=== PATIENT | female | born 2000 | race African-American/Black ===

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

== ENCOUNTER 2018-03-20 16:30 | Emergency (ER) | payer SELFPAY ==
[~2018-03-20] VITALS: Ht 162.6 cm; Wt 61.2 kg
[~2018-03-20 16:30] MED LIST: FERR-65 PO; METR500T PO
--- OUTSIDE RECORDS SUMMARY | 2018-03-20 16:37 | XMS REPORT ---
Author Author DON OLIVARES [facility] Address [address] [place] [address] Phone Unavailable Care Team Providers Care Motor Runner Name Role Phone DON OLIVARES Unavailable Unavailable PROBLEMS Unknown Problems ALLERGIES No Known Allergies ENCOUNTERS Encounter Location Date Diagnosis [facility] [address] [facility] [id number] [address] Nov, Jeet L30.4 IMMUNIZATIONS No Known Immunizations SOCIAL HISTORY Never Assessed REASON FOR VISIT irriated inner thighs-painful irritation on bilateral inner thighs that started this morning.--OSEAS Gutierrez PLAN OF CARE Activity Details Follow Up prn Reason: VITAL SIGNS Height 64 in 2017-12-19 Weight 146.4 lbs 2017-12-19 Temperature 98.0 degrees Fahrenheit 2017-12-19 Heart Rate 84 bpm 2017-12-19 Respiratory Rate 18 2017-12-19 BMI 25.13 kg/m2 2017-12-19 Blood pressure systolic 100 mmHg 2017-12-19 Blood pressure diastolic 56 mmHg 2017-12-19 MEDICATIONS No Known Medications RESULTS No Results PROCEDURES No Known procedures INSTRUCTIONS MEDICATIONS ADMINISTERED No Known Medications MEDICAL (GENERAL) HISTORY Type Description Date Hospitalization History childbirth 04/2017
[2018-03-20] MEDS ORDERED: NS IV 1000 ML 1,000 ML IV SCH ×2 (16:50→18:19)
[2018-03-20 16:58] LABS: CLARITY,URINE SLIGHTLY CLOUDY; COLOR,URINE YELLOW; GLUCOSE, URINE (UA) NEGATIVE (NEGATIVE); KETONES,URINE 3+ (NEGATIVE); LEUKOCYTE ESTERASE ,URINE 3+ (NEGATIVE); NITRITE,URINE NEGATIVE (NEGATIVE); PH,URINE 5 (5-9); PROTEIN,URINE 3+ (NEGATIVE); UROBILINOGEN,URINE 1 MG/DL (NORMAL)
[2018-03-20] MEDS ORDERED: ACETAMINOPHEN 500 MG TAB (TYLENOL) PO PRN (17:00)
[2018-03-20 17:04] LABS: BASOPHILS % (AUTO) 0 % (0-10); EOSINOPHILS % (AUTO) 0 % (0-10); HEMATOCRIT 36 % (35-52); HEMOGLOBIN 11.9 G/DL (11.5-16.0); LYMPHOCYTES # (AUTO) 0.7 X 10^3 (1.0-4.0); LYMPHOCYTES % (AUTO) 5 % (12-44); MEAN CORPUSCULAR HEMOGLOBIN 24 PG (25-34); MEAN CORPUSCULAR HGB CONC 33 G/DL (32-36); MEAN CORPUSCULAR VOLUME 71 FL (80-99); MEAN PLATELET VOLUME 11.9 FL (7.4-10.4); MONOCYTES % (AUTO) 8 % (0-12); NEUTROPHILS # (AUTO) 10.9 X 10^3 (1.8-7.8); NEUTROPHILS % (AUTO) 86 % (42-75); PLATELET COUNT 285 10^3/uL (130-400); RED BLOOD COUNT 5.07 10^6/uL (4.35-5.85); RED CELL DISTRIBUTION WIDTH 14.9 % (10.0-14.5); WHITE BLOOD COUNT 12.7 10^3/uL (4.3-11.0)
[2018-03-20 17:06] LABS: BACTERIA,URINE LARGE /HPF; RBC,URINE 50-100 /HPF; RENAL EPITHELIAL CELLS,URINE 0-2 /HPF; WBC,URINE TNTC /HPF
[2018-03-20 17:07] LABS: AMORPHOUS SEDIMENT,UR RARE AMOR URATES /LPF
[2018-03-20 17:14] LABS: ALANINE AMINOTRANSFERASE 11 U/L (0-55); ALBUMIN 4.4 GM/DL (3.2-4.5); ALKALINE PHOSPHATASE 75 U/L (40-136); BILIRUBIN,TOTAL 1.1 MG/DL (0.1-1.0); BUN/CREATININE RATIO 13; CALCIUM 9.4 MG/DL (8.5-10.1); CARBON DIOXIDE 21 MMOL/L (21-32); CHLORIDE 103 MMOL/L (98-107); CREATININE SERUM 0.85 MG/DL (0.60-1.30); GFR ESTIMATED > 60; GLUCOSE 129 MG/DL (70-105); POTASSIUM 3.4 MMOL/L (3.6-5.0); SODIUM 137 MMOL/L (135-145); TOTAL PROTEIN 7.8 GM/DL (6.4-8.2)
[2018-03-20 17:20] LABS: INR 1.3 (0.8-1.4); PROTHROMBIN TIME PATIENT 16.3 SEC (12.2-14.7)
[2018-03-20 17:33] LABS: BAND NEUTROPHILS 29 %; LYMPHOCYTES % (MANUAL) 6 %; NEUTROPHILS % (MANUAL) 59 %
[2018-03-20 17:34] LABS: ELLIPT/OVALOCYTES MODERATE; MICROCYTOSIS MODERATE; MONOCYTES % (MANUAL) 6 %; POIKILOCYTOSIS SLIGHT
--- NOTE | 2018-03-20 17:58 | ED GU-Female ---
General Chief Complaint: Fever-Adult/Adol Stated Complaint: FEVER,VAGINAL IRRITATION Nursing Triage Note: PT ARRIVED PER EMS, PT HAS TEMP 102.7. PT STATES HAS NOT BEEN FEELING WELL FOR A COUPLE DAYS, PT STATES HAS SOME VAGINAL DISCHARGE SINCE LAST HAD SEX FROM USING BABY LOTION LUBRICANT History of Present Illness Date Seen by Provider: Mar 20, 2018 Time Seen by Provider: 16:30 Initial Comments 17-year-old -[place] female presents via EMS for vaginal irritation. She reports that 3 days ago she had intercourse after drinking alcohol, she does not recall why that they used baby lotion. She is not on control and is not using condoms. She reports the same partner for the last several months. Since then she has been noting vaginal irritation and pain. She does not recall history of STI's. She reports yellow to green vaginal discharge. Her last menstrual cycle began on March 09. She moved here from [place] in the summer and has yet to set up with a primary care provider. She denies fever, however she does report bodyaches. Timing/Duration: getting worse Severity/Quality: moderate Location: vaginal Radiation: none Activities at Onset: sexual activity Sexual [place] History: less than 2 months ago, single partner Associated Symptoms: abdominal pain, fever/chills; No nausea/vomiting, No urinary frequency Allergies and Home Medications Allergies Coded Allergies: No Known Drug Allergies (Unverified , 12/10/17) Home Medications Ciprofloxacin HCl 500 Mg Tablet, 500 MG PO BID Prescribed by: LUIS MIGUEL MARQUEZ on 03/20/181823 Metronidazole 70 Gm Gel.w.appl, 70 GM VG HS Prescribed by: LUIS MIGUEL MARQUEZ on 03/20/181817 Norethindrone AC-Eth Estradiol 1 Each Tablet, 1 EACH PO DAILY Prescribed by: LUIS MIGUEL MARQUEZ on 03/20/181817 Patient Home Medication List Home Medication List Reviewed: Yes Review of Systems Review of Systems Constitutional: no symptoms reported, see HPI, fever Genitourinary: see HPI, burning, discharge : No LMP: Mar 09, 2018 Musculoskeletal: see HPI, muscle cramps All Other Systemes Reviewed Negative Unless Noted: Yes Past Ejbexnl-Sphgmm-Lfjukv Hx Past Med/Social Hx: Reviewed Nursing Past Med/Soc Hx Patient Social History Alcohol Use: Denies Use Recreational Drug Use: No Smoking Status: Never a Smoker 2nd Hand Smoke Exposure: No Recent Foreign Travel: No Contact w/Someone Who Travel: No Recent Infectious Disease Expo: No Recent Hopitalizations: No Ebola Symptoms: Denies Symptoms Listed Physical Abuse: No Sexual Abuse: No Seasonal Allergies Seasonal Allergies: No Past Medical History Surgeries: No Respiratory: No Cardiac: No Neurological: No Sexually Transmitted Disease: No HIV/AIDS: No Genitourinary: No Gastrointestinal: No Musculoskeletal: No Endocrine: No Cancer: No Psychosocial: No Integumentary: No Blood Disorders: No Family Medical History No Pertinent Family Hx Physical Exam Vital Signs Vital Signs - First Documented 03/20/18 03/20/18 16:30 19:21 Temp 102.7 Pulse 127 Resp 18 B/P (MAP) 114/70 Pulse Ox 98 O2 Delivery Room Air Capillary Refill : Height, Weight, BMI Height: 5'4.00" Weight: 135lbs. oz. 61.362035gs; 21.09 BMI Method:Stated General Appearance: WD/WN HEENT: PERRL/EOMI, normal ENT inspection, TMs normal, pharynx normal Neck: non-tender, full range of motion, supple, normal inspection Cardiovascular: normal peripheral pulses, regular rate, rhythm, no murmur Respiratory: chest non-tender, lungs clear, normal breath sounds Gastrointestinal: normal bowel sounds, non tender, soft; No distended, No guarding, No rebound, No tenderness Pelvic: normal external exam, normal adnexa, no cerv. motion tender, no masses , discharge (and green to yellow); No vaginal bleeding Back: normal inspection, no CVA tenderness, no vertebral tenderness; No CVA tenderness (R), No CVA tenderness (L), No vertebral tenderness Neurologic/Psychiatric: no motor/sensory deficits, alert, normal mood/affect, oriented x 3 Focused Exam Lactate Level 03/20/18 16:40: Lactic Acid Level 1.04 Lactic Acid Level Progress/Results/Core Measures Suspected Sepsis SIRS Temperature:102.7 Pulse: Respiratory Rate: Laboratory Tests 03/20/18 16:40: White Blood Count 12.7H Blood Pressure / Mean: 03/20/18 16:40: Lactic Acid Level 1.04 Laboratory Tests 03/20/18 16:40: Creatinine 0.85, INR Comment 1.3, Platelet Count 285, Total Bilirubin 1.1H Results/Orders Lab Results Laboratory Tests Test 03/20/18 16:40 03/20/18 16:50 03/20/18 18:00 Range/Units White Blood Count 12.7 H 4.3-11.0 10^3/uL Red Blood Count 5.07 4.35-5.85 10^6/uL Hemoglobin 11.9 11.5-16.0 G/DL Hematocrit 36 35-52 % Mean Corpuscular Volume 71 L 80-99 FL Mean Corpuscular Hemoglobin 24 L 25-34 PG Mean Corpuscular Hemoglobin Concent 33 32-36 G/DL Red Cell Distribution Width 14.9 H 10.0-14.5 % Platelet Count 285 130-400 10^3/uL Mean Platelet Volume 11.9 H 7.4-10.4 FL Neutrophils (%) (Auto) 86 H 42-75 % Lymphocytes (%) (Auto) 5 L 12-44 % Monocytes (%) (Auto) 8 0-12 % Eosinophils (%) (Auto) 0 0-10 % Basophils (%) (Auto) 0 0-10 % Neutrophils # (Auto) 10.9 H 1.8-7.8 X 10^3 Lymphocytes # (Auto) 0.7 L 1.0-4.0 X 10^3 Monocytes # (Auto) 1.0 0.0-1.0 X 10^3 Eosinophils # (Auto) 0.0 0.0-0.3 10^3/uL Basophils # (Auto) 0.0 0.0-0.1 10^3/uL Neutrophils % (Manual) 59 % Lymphocytes % (Manual) 6 % Monocytes % (Manual) 6 % Band Neutrophils 29 % Poikilocytosis SLIGHT Microcytosis MODERATE Elliptocytes MODERATE Prothrombin Time 16.3 H 12.2-14.7 SEC INR Comment 1.3 0.8-1.4 Activated Partial Thromboplast Time 39 H 24-35 SEC Sodium Level 137 135-145 MMOL/L Potassium Level 3.4 L 3.6-5.0 MMOL/L Chloride Level 103 98-107 MMOL/L Carbon Dioxide Level 21 21-32 MMOL/L Anion Gap 13 5-14 MMOL/L Blood Urea Nitrogen 11 7-18 MG/DL Creatinine 0.85 0.60-1.30 MG/DL Estimat Glomerular Filtration Rate > 60 BUN/Creatinine Ratio 13 Glucose Level 129 H 70-105 MG/DL Lactic Acid Level 1.04 0.50-2.00 MMOL/L Calcium Level 9.4 8.5-10.1 MG/DL Corrected Calcium 9.1 8.5-10.1 MG/DL Total Bilirubin 1.1 H 0.1-1.0 MG/DL Aspartate Amino Transf (AST/SGOT) 15 5-34 U/L Alanine Aminotransferase (ALT/SGPT) 11 0-55 U/L Alkaline Phosphatase 75 40-136 U/L Total Protein 7.8 6.4-8.2 GM/DL Albumin 4.4 3.2-4.5 GM/DL Urine Color YELLOW Urine Clarity SLIGHTLY CLOUDY Urine pH 5 5-9 Urine Specific [place] 1.025 H 1.016-1.022 Urine Protein 3+ H NEGATIVE Urine Glucose (UA) NEGATIVE NEGATIVE Urine Ketones 3+ H NEGATIVE Urine Nitrite NEGATIVE NEGATIVE Urine Bilirubin 1+ H NEGATIVE Urine Urobilinogen 1 NORMAL MG/DL Urine Leukocyte Esterase 3+ H NEGATIVE Urine RBC (Auto) 5+ H NEGATIVE Urine RBC 50-100 H /HPF Urine WBC TNTC H /HPF Urine Squamous Epithelial Cells 5-10 /HPF Urine Renal Epithelial Cells 0-2 /HPF Urine Crystals PRESENT H /LPF Urine Amorphous Sediment RARE ABELARDO URATES H /LPF Urine Bacteria LARGE H /HPF Urine Casts NONE /LPF Urine Mucus SMALL H /LPF Urine Culture Indicated NO Urine Test NEGATIVE NEGATIVE Micro Results Microbiology 03/20/18 Influenza Types A,B Antigen (TABITHA) - Final, Complete My Orders Orders - LUIS MIGUEL MARQUEZ Cbc With Automated Diff (03/20/18 16:50) Comprehensive Metabolic Panel (03/20/18 16:50) Blood Culture (03/20/18 16:50) Urinalysis (03/20/18 16:50) Urine Culture (03/20/18 16:50) Protime With Inr (03/20/18 16:50) Partial Thromboplastin Time (03/20/18 16:50) Acetaminophen Tablet (Tylenol Tablet) (03/20/18 17:00) Saline Lock/Iv-Start (03/20/18 16:50) O2 (03/20/18 16:50) Influenza A And B Antigens (03/20/18 16:50) Ns Iv 1000 Ml (Sodium Chloride 0.9%) (03/20/18 16:50) Lactic Acid Analyzer (03/20/18 16:50) Manual Differential (03/20/18 16:40) Hcg,Qualitative Urine (03/20/18 17:25) Wet Prep (03/20/18 17:58) Neisseria Gonorrhea Swab (03/20/18 17:58) Genital Culture (03/20/18 17:58) Chlamydia Trachomatis Swab (03/20/18 17:58) Saline Lock/Iv-Start (03/20/18 18:19) Ns Iv 1000 Ml (Sodium Chloride 0.9%) (03/20/18 18:19) Ciprofloxacin Tablet (Cipro Tablet) (03/20/18 18:25) Medications Given in ED Current Medications Medications Dose Ordered Sig/Portia Route Start Time Stop Time Status Last Admin Dose Admin Acetaminophen 1,000 mg ONCE PRN PO 03/20/18 17:00 03/20/18 17:00 DC 03/20/18 16:56 1,000 MG Vital Signs/I&O 03/20/18 03/20/18 16:30 19:21 Temp 102.7 98.9 Pulse 127 106 Resp 18 18 B/P (MAP) 114/70 101/56 (71) Pulse Ox 98 O2 Delivery Room Air Capillary Refill : Progress Note : Time: 16:30 Progress Note Patient seen and evaluated, will do full lab workup and check for influenza. Tylenol 1000 mg by mouth for fever and normal saline 1 L IV 1715 labs essentially normal, influenza A and B negative, urine positive for UTI. Recommended pelvic exam to check for PID. Patient was exquisitely tender with vaginal speculum insertion, cultures obtained and wet prep. 1800 discussed results of lab and wet prep with the patient. We'll administer a second liter of IV fluids, normal saline. Temperature 99.3. Cipro 500 mg orally for UTI. 1900 patient continues to have no abdominal pain, no CVA tenderness. Discharge instructions and return precautions reviewed with the patient. She understands the importance of taking her medications as prescribed. She also like to start oral contraceptives which will be prescribed. I stressed the importance of her establishing care with a primary care provider in this area. Departure Impression Primary Impression: Bacterial vaginosis Additional Impression: UTI (urinary tract infection) Qualified Codes: N30.01 - Acute cystitis with hematuria Disposition: HOME, SELF-CARE Condition: Improved Departure-Patient Inst. Decision time for Depature: 18:15 Referrals: NO,LOCAL PHYSICIAN (PCP/Family) Primary Care Physician Patient Instructions: Bacterial Vaginosis (DC), Urinary Tract Infection, Adult (DC) Add. Discharge Instructions: Take antibiotic as prescribed and use the Flagyl at bedtime, with applicator intra-vaginally. Complete Vaginal Rest: No intercourse or anything else in the vagina, until all labs are back and you have finished your medications. You may take Tylenol 650 mg alternating with ibuprofen 600 mg every 4 hours for pain or fever. Take showers only, no baths. Scheduled follow-up with a primary care provider or at Critical access hospital, see list of local health care providers Return to emergency department for acute, emergent health care problems. All discharge instructions reviewed with patient and/or family. Voiced understanding. Scripts Ciprofloxacin HCl (Cipro) 500 Mg Tablet 500 MG PO BID, #10 TAB 0 Refills Prov: LUIS MIGUEL MARQUEZ 03/20/18 Norethindrone AC-Eth Estradiol (Loestrin 21 1.5-30 Tablet) 1 Each Tablet 1 EACH PO DAILY, #1 PACKET 3 Refills Prov: LUIS MIGUEL MARQUEZ 03/20/18 Metronidazole (Metronidazole) 70 Gm Gel.w.appl 70 GM VG HS for 5 Days, #1 TUBE Prov: LUIS MIGUEL MARQUEZ 03/20/18 Work/School Note: Local Medical Staff Listing LUIS MIGUEL MARQUEZ Mar 20, 2018 17:58
[2018-03-20] MEDS ORDERED: METR70GE5 VG (18:18)
[2018-03-20] MEDS ORDERED: NORE-97 PO (18:18)
[2018-03-20] MEDS ORDERED: CIPR-225 PO (18:24)
[2018-03-20] MEDS ORDERED: CIPROFLOXACIN 500 MG (CIPRO) TABLET PO STA (18:25)
[2018-03-20 19:21] VITALS: BP 101/56
[2018-03-21 09:56] LABS: BILIRUBIN,URINE 1+ (NEGATIVE)
== END 2018-03-20 19:21 | disposition home or self-care (01) ==
LOC: EDUNIT# 16:32 → ER 16:33
DX: N76.0 Acute vaginitis (principal); B96.89 Other specified bacterial agents as the cause of diseases classified elsewhere; N39.0 Urinary tract infection, site not specified
CPT/HCPCS: 36415; 80053; 81000; 83605; 84703; 85007; 85027; 85610; 85730; 87040; 87070; 87077; 87088; 87205; 87210; 87491; 87591; 87804

== ENCOUNTER 2018-03-25 03:06 | Emergency (ER) | payer SELFPAY ==
[~2018-03-25] VITALS: Ht 162.6 cm; Wt 61.2 kg
[~2018-03-25 03:06] MED LIST changes: +CIPR-225 PO; +METR70GE5 VG; +NORE-97 PO
--- NOTE | 2018-03-25 04:05 | ED GU-Female ---
General Chief Complaint: -Female Stated Complaint: IRRITATION TO VAGINA Nursing Triage Note: PT AMB FROM TRIAGE TO ROOM #9 W/O DIFFICULTY. A&OX4. C/O VAGINAL IRRITATION THAT BEGAN APPROX 3DAYS AGO. PT REPORTS BUMPS HAVE DEVELOPED THAT ARE NOW IRRITATED AND INFLAMMED. PT STATES "I PUT BABY LOTION ON MY BOYFRIENDS PENIS FOR HIS PLEASURE, THEN I FORGOT IT WAS ON THERE, SO WE HAD SEX AND NOW IM COVERED IN ALL THESE NASTY BUMPS." Source: patient, old records History of Present Illness Date Seen by Provider: Mar 25, 2018 Time Seen by Provider: 03:35 Initial Comments PT ARRIVES VIA EMS FROM HOME C/O VAGINAL PAIN SEEN HERE 03/20/18 FOR SAME,ALSO ARRIVING BY EMS ON THAT VISIT ALSO--FOR COMPLAINT OF VAGINAL PAIN-- DX WITH UTI AND BACTERIAL VAGINOSIS. RX'S FOR CIPRO + FLAGYL. HAD EXTENSIVE WORK UP INCLUDING LAB AND PELVIC EXAM/CULTURES. GC AND CHLAMYDIA TESTS WERE NEGATIVE AT THAT TIME. URINE CULTURE GREW GROUP B STREP AND GARDNERELLA. PT STATES SHE STILL HAS PAIN AND BURNING IN HER VAGINAL AREA AND HAS "BUMPS" IN VAGINAL AREA. STATES "FIRST THEY LOOKED LIKE PUS BUMPS BUT NOW THEY'RE REALLY RED AND THEY BURN" C/O VAGINAL DISCHARGE NO ABDOMINAL / PELVIC PAIN NO NAUSEA/VOMITING NO FEVER NO HISTORY OF SIMILAR PT CLAIMS ALL SYMPTOMS STARTED AFTER HAVING INTERCOURSE USING BABY LOTION SEVERAL DAYS AGO. Allergies and Home Medications Allergies Coded Allergies: No Known Drug Allergies (Unverified , 12/10/17) Home Medications Ciprofloxacin HCl 500 Mg Tablet, 500 MG PO BID Prescribed by: LUIS MIGUEL MARQUEZ on 03/20/181823 Metronidazole 70 Gm Gel.w.appl, 70 GM VG HS Prescribed by: LUIS MIGUEL MARQUEZ on 03/20/181817 Norethindrone AC-Eth Estradiol 1 Each Tablet, 1 EACH PO DAILY Prescribed by: LUIS MIGUEL MARQUEZ on 03/20/181817 Patient Home Medication List Home Medication List Reviewed: Yes Review of Systems Review of Systems Constitutional: no symptoms reported Genitourinary: see HPI Past Ckzxbal-Tktbga-Lvkquh Hx Patient Social History Alcohol Use: Denies Use Recreational Drug Use: No Smoking Status: Never a Smoker 2nd Hand Smoke Exposure: No Recent Foreign Travel: No Contact w/Someone Who Travel: No Recent Infectious Disease Expo: No Recent Hopitalizations: No Ebola Symptoms: Denies Symptoms Listed Seasonal Allergies Seasonal Allergies: No Past Medical History Surgeries: No Respiratory: No Cardiac: No Neurological: No Sexually Transmitted Disease: No HIV/AIDS: No Genitourinary: No Gastrointestinal: No Musculoskeletal: No Endocrine: No Cancer: No Psychosocial: No Integumentary: No Blood Disorders: No Family Medical History No Pertinent Family Hx Physical Exam Vital Signs Vital Signs - First Documented 03/25/18 03:32 Temp 96.9 Pulse 106 Resp 18 B/P (MAP) 114/81 Pulse Ox 96 O2 Delivery Room Air Capillary Refill : Height, Weight, BMI Height: 5'4.00" Weight: 135lbs. oz. 61.415890fd; 21.09 BMI Method:Stated General Appearance: other (PT REFUSED EXAM. ) Progress/Results/Core Measures Suspected Sepsis SIRS Temperature:96.9 Pulse: Respiratory Rate: Blood Pressure / Mean: Results/Orders My Orders Orders - CHILO SIMMONS DO Ua Culture If Indicated (03/25/18 03:37) Urine Bedside (03/25/18 03:37) Vital Signs/I&O 03/25/18 03:32 Temp 96.9 Pulse 106 Resp 18 B/P (MAP) 114/81 Pulse Ox 96 O2 Delivery Room Air Capillary Refill : Progress Note : Progress Note 0413--PT HAS BEEN ASKED VERY NICELY ON 4 SEPARATE OCCASIONS BY MYSELF AND NURSING STAFF TO GET UNDRESSED SO AN EXAM CAN BE DONE, AND PT ADAMANTLY REFUSES , AND PT CONTINUES TO TALK ON PHONE AND REFUSES TO STOP TALKING ON PHONE SO MYSELF AND STAFF CAN TALK TO HER. PT ALSO REFUSES TO GIVE URINE SAMPLE AMA PAPERS SIGNED. Departure Impression Primary Impression: Left against medical advice Disposition: 07 AGAINST MEDICAL ADVICE Condition: Against Medical Advice Departure-Patient Inst. Referrals: [facility] (PCP/Family) Primary Care Physician CHILO SIMMONS DO Mar 25, 2018 04:05
== END 2018-03-25 04:17 | disposition left against medical advice (07) ==
LOC: EDUNIT# 03:06 → ER 03:09
DX: R10.2 Pelvic and perineal pain (principal)
CPT/HCPCS: 99283